=== PATIENT | female | born 1980 | race Caucasian/White ===

== ENCOUNTER 2023-06-26 14:19 | Outpatient (CLI) | payer OTHER, SELFPAY ==
--- NOTE | 2023-06-26 14:25 | MM_ITS ---
WS: [id number] BILATERAL 3D TOMOSYNTHESIS DIGITAL SCREENING MAMMOGRAPHY WITH CAD CLINICAL INFORMATION: SCREENING HISTORY: Screening mammogram. No current complaints. COMPARISON: Baseline TECHNIQUE: Bilateral CC and MLO views. FINDINGS: The breasts are composed of heterogeneous fibroglandular density tissue, which can limit the detectio n of small underlying mass lesions. No suspicious mass, asymmetry, calcifications, or architectural d istortion. No evidence of malignancy. Few tiny incidental punctate calcifications. IMPRESSION: MM/[place] [id number] BI-RADS: 2-Benign FOLLOW UP: 1 Year Follow-up Recommend return to annual screening mammography.
== END 2023-06-26 14:20 | disposition home or self-care (01) ==
PROVIDERS: Family Provider Family Medicine; PCP Family Medicine; Visit Provider Family Medicine
DX: Z12.31 Encounter for screening mammogram for malignant neoplasm of breast (principal)
CPT/HCPCS: 77063; 77067

== ENCOUNTER 2023-07-05 09:12 | Outpatient (CLI) | payer OTHER, SELFPAY ==
--- NOTE | 2023-07-05 09:26 | NM_ITS ---
WS: [id number] NUCLEAR MEDICINE HIDA SCAN CLINICAL INFORMATION: RUQ PAIN TECHNIQUE: Following intravenous administration of 8.1 mCi of technetium 99m mebrofenin, images of th e abdomen were obtained over the course of 60 minutes. Next, gallbladder ejection fraction was determ ined by obtaining preprandial and one-hour postprandial images of the gallbladder following oral evelio stion of Ensure. COMPARISON: Ultrasound 06/10/2023 FINDINGS: Normal hepatic uptake at 5 minutes. Normal hepatic excretion. No filling of the gallbladder is visual ized by 120 minutes. Normal common bile duct and small bowel activity. Normal hepatic excretion. Find ings compatible with cystic duct obstruction and suspicious for cholecystitis. Recommend correlation with clinical symptoms and biliary studies. NM/NM hepatobiliary wo phar [id number] IMPRESSION: 1. No filling of the gallbladder after 2 hours suspicious for cholecystitis. 2. Previously described possible small hemangioma LEFT hepatic lobe. This woul d be better evaluated with contrast-enhanced CT abdomen pelvis with liver lacey col.
== END 2023-07-05 09:13 | disposition home or self-care (01) ==
LOC: RAD 09:12
PROVIDERS: Family Provider Family Medicine; PCP Family Medicine; Visit Provider Family Medicine
DX: R10.11 Right upper quadrant pain (principal)
CPT/HCPCS: 78226; A9537